=== PATIENT | female | born 1955 | race Caucasian/White ===

== ENCOUNTER → 2018-03-17 | Outpatient (CLI) | payer OTHER ==
[2018-02-10 11:00] VITALS: BP 146/74
[~2018-03-17] MED LIST: ASCO500T3 PO; FERR325T14 PO; FLUO40CA9 PO; GABA-586 PO; METF500T5 PO; TRAZ-86 PO
--- NOTE | 2018-03-17 16:33 | RAD ---
MR#: [id number] Date of Study: 03/17/2018 Ordering Physician: PHILLIP SANFORD, Referring Physician: PHILLIP SANFORD Tech: Pauly Barbour RDMS RVT APPROVED REPORT Patient Location: OUT-PATIENT Laterality:Bilateral Indications Dizziness and Vertigo Grayscale images of the bilateral common carotid arteries, internal and external carotid arteries rev eal mild diffuse intimal hyperplasia. Spectral waveforms and color Doppler do not reveal any signific ant velocity acceleration or deceleration. Overall 0 to less than 50% stenosis involving the ICA vess els bilaterally. Bilateral vertebral velocities are antegrade. Normal ICA to CCA ratio is noted. Doppler Spectral Velocity Analysis Right Left mCCA 68/12 cm/smCCA 94/13 cm/s ECA 74/ cm/sECA 95/ cm/s pICA 57/19 cm/spICA 74/20 cm/s Melissa 70/21 cm/smICA 92/24 cm/s dICA 72/21 cm/sdICA 107/36 cm/s ICA/CCA 1.06ICA/CCA 1.13 Critical Notification Critical Value: No <Conclusion> No significant carotid arterial disease bilaterally. Signed by : Enrico Taylor, Electronically Approved : 03/17/2018 16:32:17
== END | disposition home or self-care (01) ==
LOC: US 09:04
PROVIDERS: ATTEND Internal Medicine Cardiovascular Disease
DX: R42 Dizziness and giddiness (principal); E11.621 Type 2 diabetes mellitus with foot ulcer; L97.529 Non-pressure chronic ulcer of other part of left foot with unspecified severity; Z86.2 Personal history of diseases of the blood and blood-forming organs and certain disorders involving the immune mechanism
CPT/HCPCS: 93880

== ENCOUNTER 2018-10-25 15:07 | Emergency (ER) | payer OTHER ==
[~2018-10-25] VITALS: Ht 172.7 cm; Wt 93.0 kg
[~2018-10-25 15:07] MED LIST changes: +METF500T16 PO; -METF500T5 PO
--- NOTE | 2018-10-25 16:06 | PHYS DOC ---
Past History Past Medical History: Diabetes, Hypertension Past Surgical History: No Surgical History Smoking: Cigarettes Alcohol Use: None Drug Use: None Adult General Chief Complaint Chief Complaint: LOWER EXT PAIN HPI HPI 63-year-old female presents with bilateral lower extremity cramping. Patient states that it is worse when she walks. It improves with rest. It has been getting worse for about the last 1 week that is most pronounced the last 2 days. The patient had this once previously and was anemic requiring transfusion. The source of her anemia is determined to be low iron. The patient has normal limits in the past and restarted them once a month. The patient also recently had thyroid surgery. Because she had cancer in her thyroid. She restarted her levothyroxin about 3 weeks ago. She has not had her TSH checked since that time. Patient also reports an episode of tachycardia yesterday that lasted about 5 minutes. She was mildly short of breath but this completely resolved. History of a trip fibrillation. She denies fever or chills. Review of Systems Review of Systems Constitutional: Denies fever or chills [] Eyes: Denies change in visual acuity, redness, or eye pain [] HENT: Denies nasal congestion or sore throat [] Respiratory: Denies cough or shortness of breath [] Cardiovascular: No additional information not addressed in HPI [] GI: Denies abdominal pain, nausea, vomiting, bloody stools or diarrhea [] : Denies dysuria or hematuria [] Musculoskeletal: Bilateral leg cramps[] Integument: Denies rash or skin lesions [] Neurologic: Denies headache, focal weakness or sensory changes [] Endocrine: Denies polyuria or polydipsia [] All other systems were reviewed and found to be within normal limits, except as documented in this note. Allergies Allergies Allergies Coded Allergies Type Severity Reaction Last Updated Verified amoxicillin Allergy Intermediate RASH, N/V 02/10/18 Yes codeine Allergy Intermediate 02/10/18 Yes Physical Exam Physical Exam Constitutional: Well developed, well nourished, no acute distress, non-toxic appearance. [] HENT: Normocephalic, atraumatic, bilateral external ears normal, oropharynx moist, no oral exudates, nose normal. [] Eyes: PERRLA, EOMI, conjunctiva normal, no discharge. [] Neck: Normal range of motion, no tenderness, supple, no stridor. [] Cardiovascular:Heart rate regular rhythm, no murmur [] Lungs & Thorax: Bilateral breath sounds clear to auscultation [] Abdomen: Bowel sounds normal, soft, no tenderness, no masses, no pulsatile masses. [] Skin: Warm, dry, no erythema, no rash. Well-healed surgical incision of the neck consistent with thyroid surgery. [] Back: No tenderness, no CVA tenderness. [] Extremities: No tenderness, no cyanosis, no clubbing, ROM intact, no edema. [] Neurologic: Alert and oriented X 3, normal motor function, normal sensory function, no focal deficits noted. [] Psychologic: Affect normal, judgement normal, mood normal. [] EKG EKG Sinus rhythm, rate 66, normal axis, no ST elevations or depressions.[] Radiology/Procedures Radiology/Procedures [] Impressions: CHEST AP ONLY Clinical Indication: Chest pain with waekness Comparison: 02/09/2018 CTA of the chest. Findings: The cardiomediastinal silhouette is normal. Lungs are clear. There is no pneumothorax. No pleural effusion is appreciated. No acute bone abnormality. Plate and screws are partially seen involving the proximal left humerus. IMPRESSION: No acute cardiopulmonary process. Electronically signed by: Chantal Verdugo MD (10/25/2018 4:19 PM) [facility] DICTATED AND SIGNED BY: CHANTAL VERDUGO MD DATE: 10/25/18 1618 CC: ALESSIA MAY DO; LAWSON STAUFFER Course & Med Decision Making Course & Med Decision Making Pertinent Labs and Imaging studies reviewed. (See chart for details) Patient's chest x-ray is unremarkable. Her EKG is unremarkable. Her lab work is unremarkable except for an elevated blood sugar of 240. I do not have a definitive cause for her lower extremity fatigue. Her hemoglobin is 8.1 which is low but does not meet transfusion requirements. Her symptoms could be a combination of this with her baseline vascular disease. I have made patient aware of these results. She is stable for discharge at this time. [] Dragon Disclaimer Dragon Disclaimer This electronic medical record was generated, in whole or in part, using a voice recognition dictation system. Departure Departure: Impression: Primary Impression: Iron deficiency anemia Additional Impression: Claudication of lower extremity Disposition: HOME, SELF-CARE Condition: STABLE Referrals: LAWSON STAUFFER (PCP) Patient Instructions: Intermittent Claudication, Iron Deficiency Anemia, Easy- to-Read Problem Qualifiers Primary Impression: Iron deficiency anemia Iron deficiency anemia type: inadequate dietary iron intake Qualified Codes: D50.8 - Other iron deficiency anemias ALESSIA MAY DO Oct 25, 2018 16:06
--- NOTE | 2018-10-25 16:22 | RAD ---
CHEST AP ONLY Clinical Indication: Chest pain with waekness Comparison: 02/09/2018 CTA of the chest. Findings: The cardiomediastinal silhouette is normal. Lungs are clear. There is no pneumothorax. No pleural effusion is appreciated. No acute bone abnormality. Plate and screws are partially seen involving the proximal left humerus. IMPRESSION: No acute cardiopulmonary process. Electronically signed by: Darek Gomez MD (10/25/2018 4:19 PM) [facility] [id number]
[2018-10-25 16:52] VITALS: BP 147/75
[2018-10-25 17:00] LABS: BASO % 1 % (0-3); EOS % 1 % (0-3); HEMOGLOBIN 8.1 g/dL (12.0-15.5); LYMPH # 1.2 x10^3/uL (1.0-4.8); LYMPH % 28 % (24-48); MEAN CORPUSCULAR HEMOGLOBIN 29 pg (25-35); MEAN CORPUSCULAR HGB CONC 33 g/dL (31-37); MEAN CORPUSCULAR VOLUME 88 fL (79-100); MONO # 0.3 x10^3/uL (0.0-1.1); MONO % 7 % (0-9); NEUT # 2.7 x10^3uL (1.8-7.7); NEUT % 64 % (31-73); PLATELET COUNT 231 x10^3/uL (140-400); RED BLOOD COUNT 2.83 x10^6/uL (3.50-5.40); RED CELL DISTRIBUTION WIDTH 16.4 % (11.5-14.5); WHITE BLOOD COUNT 4.2 x10^3/uL (4.0-11.0)
[2018-10-25 17:07] LABS: BACTERIA,URINE 0 /HPF (0-FEW); BILIRUBIN,URINE NEG (NEG); CLARITY,URINE CLEAR; COLOR,URINE YELLOW; GLUCOSE,URINE NEG (NEG); NITRITE,URINE NEG (NEG); SQUAMOUS EPITHELIAL CELL,UR FEW /LPF; UROBILINOGEN,URINE 1 mg/dL (0.2 mg/dL)
[2018-10-25 17:16] LABS: ALBUMIN 3.2 g/dL (3.4-5.0); ALBUMIN/GLOBULIN RATIO 0.8 (1.0-1.7); CALCIUM 8.4 mg/dL (8.5-10.1); CREATININE 0.9 mg/dL (0.6-1.0); GFR 63.7; POTASSIUM 4.9 mmol/L (3.5-5.1); TOTAL BILIRUBIN 0.2 mg/dL (0.2-1.0); TOTAL PROTEIN 7.4 g/dL (6.4-8.2)
--- NOTE | 2018-10-25 17:44 | EKG ---
[address] [address] Test Date: 2018-10-25 Test Time: 16:18:24 Pat Name: PARVEEN ESCAMILLA Department: Room: Gender: F [employer]: : 1955 Requested By: ALESSIA MAY Order Number: [id number] Reading MD: Phillip Rock Measurements Intervals [place] Rate: 66 P: 90 MA: 128 QRS: 31 QRSD: 82 T: 38 QT: 412 QTc: 434 Interpretive Statements SINUS RHYTHM Electronically Signed On 10-27-2018 11:00:14 ENTEROSTOMAL NURSE by Phillip Rock
== END 2018-10-25 18:25 | disposition home or self-care (01) ==
LOC: ER 15:07
DX: D50.8 Other iron deficiency anemias (principal); I70.213 Atherosclerosis of native arteries of extremities with intermittent claudication, bilateral legs; R07.89 Other chest pain; R53.1 Weakness; E11.9 Type 2 diabetes mellitus without complications; I10 Essential (primary) hypertension; F17.210 Nicotine dependence, cigarettes, uncomplicated; Z88.1 Allergy status to other antibiotic agents; Z88.5 Allergy status to narcotic agent
CPT/HCPCS: 36415; 71045; 80053; 81001; 82947; 84484; 85025; 87086; 93005; 99284

== ENCOUNTER → 2019-01-31 | Outpatient (CLI) | payer OTHER ==
[~2019-01-31] MED LIST changes: +DAPTOMYCIN IV ONE; +NORMAL SALINE IV ONE
[2019-01-31 11:13] VITALS: BP 161/64
--- NOTE | 2019-01-31 11:15 | NUR ---
Pt ambulated to rm 111 for outpatient tx. Vitals taken, PICC flushed with 10cc ns w/good blood return. Dressing clean, dry and intact. Infusion started.
--- NOTE | 2019-01-31 11:55 | NUR ---
Patient infusion complete, patient tolerated without any concern or complaint. Discharged in stable condition, respirations even and unlabored on room air. Ambulating independently, no questions or concerns.
== END | disposition home or self-care (01) ==
LOC: OPINF 10:06
PROVIDERS: ATTEND Internal Medicine Infectious Disease
DX: M86.9 Osteomyelitis, unspecified (principal)
CPT/HCPCS: 96365; J0878

== ENCOUNTER → 2019-02-10 | Outpatient (CLI) | payer OTHER ==
[2019-01-31 11:13] VITALS: BP 161/64
[~2019-02-10] MED LIST changes: -DAPTOMYCIN IV ONE; -NORMAL SALINE IV ONE
== END | disposition home or self-care (01) ==
LOC: OPINF 15:36
PROVIDERS: ATTEND Internal Medicine Infectious Disease
DX: M86.9 Osteomyelitis, unspecified (principal); Z88.1 Allergy status to other antibiotic agents; Z88.6 Allergy status to analgesic agent; Z83.3 Family history of diabetes mellitus
CPT/HCPCS: 36569

== ENCOUNTER → 2020-05-06 | Outpatient (CLI) | payer BC ==
[2019-01-31 11:13] VITALS: BP 161/64
[~2020-05-06] MED LIST changes: +TRAZ-125 PO; -TRAZ-86 PO
--- NOTE | 2020-05-06 10:37 | RAD ---
US PELVIS W/TV History: Cervical cancer, radiation Comparison: None. Findings: Multiple transabdominal sonographic images of the pelvis are submitted. Uterus measured 11.8 x 7.6 cm. Ovaries are not well visualized. Transvaginal ultrasound: Multiple transvaginal sonographic images of the pelvis are submitted. There is a hyperechoic mass of the uterus closer to the fundus about 3.3 x 3.5 cm. There is another mass in the left uterus about 5.2 x 3.7 cm in size. There is another possible mass of the right uterus up to 7.5 cm although could also be due to adjacent bowel. There is a 1.1 x 1.5 cm x 1.1 cm focus of hypoechogenicity with diffuse internal echoes in the cervix. This is not associated with significant central vascularity on color Doppler imaging, although some vascularity near the periphery. Endometrium was estimated about 1.4 cm in thickness, segment fluid in the endometrial cavity at this location. There is minimal free fluid in the left pelvis. Ovaries are not visualized on either side. Impression: 1. There is centrally avascular hypoechoic mass or complex fluid collection in the cervix up to 1.5 cm. There is some fluid in the endometrial cavity, overall endometrial thickness considered abnormal in a postmenopausal patient although endometrium poorly distinguished. There are uterine masses likely due to fibroids. There is minimal free fluid in the left pelvis. Electronically signed by: Wan Phillips MD (05/06/2020 10:35 AM) [id number]
== END | disposition home or self-care (01) ==
LOC: US 08:10
PROVIDERS: ATTEND Obstetrics & Gynecology Gynecologic Oncology
DX: C53.9 Malignant neoplasm of cervix uteri, unspecified (principal); N85.9 Noninflammatory disorder of uterus, unspecified; R93.89 Abnormal findings on diagnostic imaging of other specified body structures
CPT/HCPCS: 76830; 76856

== ENCOUNTER → 2021-09-14 | Outpatient (CLI) | payer BC ==
[2019-01-31 11:13] VITALS: BP 161/64
[2021-09-14 17:50] LABS: BASO % 1 % (0-3); EOS % 2 % (0-3); HEMATOCRIT 26.9 % (36.0-47.0); HEMOGLOBIN 8.7 g/dL (12.0-15.5); LYMPH # 0.3 x10^3/uL (1.0-4.8); LYMPH % 15 % (24-48); MEAN CORPUSCULAR HEMOGLOBIN 33 pg (25-35); MEAN CORPUSCULAR HGB CONC 32 g/dL (31-37); MEAN CORPUSCULAR VOLUME 103 fL (79-100); MONO # 0.1 x10^3/uL (0.0-1.1); MONO % 5 % (0-9); NEUT # 1.7 x10^3uL (1.8-7.7); NEUT % 77 % (31-73); PLATELET COUNT 168 x10^3/uL (140-400); RED BLOOD COUNT 2.62 x10^6/uL (3.50-5.40); RED CELL DISTRIBUTION WIDTH 14.5 % (11.5-14.5); WHITE BLOOD COUNT 2.2 x10^3/uL (4.0-11.0)
[2021-09-14 18:14] LABS: C REACTIVE PROTEIN 2.2 mg/L (0-3.3)
[2021-09-14 20:56] LABS: % BANDS 2 % (0-9); % EOS 5 % (0-5); % LYMPHS 19 % (24-48); % MONOS 3 % (0-10)
[2021-09-14 20:58] LABS: PLT ESTIMATE ADEQUATE (ADEQUATE)
[2021-09-15 10:11] LABS: HAPTOGLOBIN 152 mg/dL (37-355)
[2021-09-16 10:47] LABS: % SEGS 71 % (35-66)
[2021-09-16 12:12] LABS: KAPPA FREE 144.9 mg/L (3.3-19.4); KAPPA LAMBDA RATIO 1.06 (0.26-1.65); LAMBDA FREE 136.8 mg/L (5.7-26.3)
== END ==
LOC: LAB 16:11
PROVIDERS: ATTEND Internal Medicine Hematology & Oncology
DX: D50.9 Iron deficiency anemia, unspecified (principal)
CPT/HCPCS: 36415; 82525; 82607; 82668; 82728; 82746; 83010; 83520; 83540; 83550; 83615; 83921; 84165; 85007; 85025; 85045; 86140; 86334

== ENCOUNTER → 2021-11-07 | Outpatient (CLI) | payer BC ==
[2019-01-31 11:13] VITALS: BP 161/64
[2021-11-07 16:51] LABS: BASO % 1 % (0-3); EOS % 1 % (0-3); HEMATOCRIT 32.8 % (36.0-47.0); HEMOGLOBIN 10.3 g/dL (12.0-15.5); LYMPH # 0.4 x10^3/uL (1.0-4.8); LYMPH % 16 % (24-48); MEAN CORPUSCULAR HEMOGLOBIN 31 pg (25-35); MEAN CORPUSCULAR HGB CONC 31 g/dL (31-37); MEAN CORPUSCULAR VOLUME 100 fL (79-100); MONO # 0.1 x10^3/uL (0.0-1.1); MONO % 6 % (0-9); NEUT # 1.8 x10^3uL (1.8-7.7); NEUT % 76 % (31-73); PLATELET COUNT 160 x10^3/uL (140-400); RED BLOOD COUNT 3.27 x10^6/uL (3.50-5.40); WHITE BLOOD COUNT 2.3 x10^3/uL (4.0-11.0)
[2021-11-07 18:59] LABS: % BANDS 1 % (0-9); % EOS 1 % (0-5); % LYMPHS 10 % (24-48); % MONOS 3 % (0-10); % SEGS 85 % (35-66); PLT ESTIMATE ADEQUATE (ADEQUATE)
== END ==
LOC: LAB 15:49
PROVIDERS: ATTEND Internal Medicine Hematology & Oncology
DX: D50.9 Iron deficiency anemia, unspecified (principal)
CPT/HCPCS: 36415; 82607; 82746; 83921; 85007; 85025